=== PATIENT | male | born 1965 | race Caucasian/White ===

== ENCOUNTER 2017-03-31 02:23 | Inpatient (IN) | payer OTHER ==
[~2017-03-31] VITALS: Ht 177.8 cm; Wt 136.1 kg
[~2017-03-31 02:23] MED LIST: AMILORIDE HCL-1 EACH PO; ASPIRIN EC81 M1 PO; METOPROLOL TART25 M1 PO; PROTONIX40 M3 PO
[2017-03-31] MEDS ORDERED: COLACE100 M1 PO (09:36)
[2017-03-31] MEDS ORDERED: ASPIRIN EC325 M2 PO (09:36)
[2017-03-31] MEDS ORDERED: MIRALAX17 G1 PO (09:36)
[2017-03-31] MEDS ORDERED: MS CONTIN30 M1 PO (09:37)
[2017-03-31] MEDS ORDERED: DILAUDID2 M1 PO (09:37)
--- NOTE | 2017-03-31 09:45 | Patient Discharge Instructions ---
Discharge Instructions General Discharge Information You were seen/treated for: RIGHT KNEE PAIN RELATED TO OSTEOARTHRITIS You had these procedures: RIGHT TOTAL KNEE REPLACEMENT Watch for these problems: Increasing pain despite the use of pain medication. Increasing redness, warmth, swelling. Drainage of any type from incision. Inability to bear weight on right leg. Persistent nausea and vomitting. Fever greater than 101.5 degrees. Do not soak the wound: Yes No bath, but you may shower: Yes Other wound care: Keep wound clean and dry. No ointments of any type on or near incision at any time, no exceptions. Dressing will be changed on the second day after your surgery by nurses. Daily dry dressing changes recommended thereafter. Special Instructions: Aspirin: You will be taking 325 mg of aspirin twice a day as a way of protecting you from developing a blood clot. Please take as directed. Please take with food for stomach protection. Constipation: Pain medication can be very constipating. Please take colace and miralax as direct to ensure that you are able to move your bowels. These medications are available over the counter should you run out. You may stop taking these medications if you develop loose stool or diarrhea. If you haven't moved you bowels for several days, or if you are unable to pass gas, please contact your dr. Diet Continue normal diet: Yes Recommended Diet: Regular Additional DIET Information: Advance as tolerated Activity Full Activity/No Limits: No Activity Self Limited: Yes Pounds, do NOT lift more than: 10 Activity Limited to: Weight bear as tolerated Acute Coronary Syndrome Inclusion Criteria At DC or during hospital stay patient has or had the following: ACS DIAGNOSIS No Discharge Core Measures Meds if any: Prescribed or Continued at Discharge Meds if any: NOT Prescribed or Continued at Discharge Congestive Heart Failure Inclusion Criteria At DC or during hospital stay patient has or had the following: CHF DIAGNOSIS No Discharge Core Measures Meds if any: Prescribed or Continued at Discharge Meds if any: NOT Prescribed or Continued at Discharge Cerebrovascular accident Inclusion Criteria At DC or during hospital stay patient has or had the following: CVA/TIA Diagnosis No Discharge Core Measures Meds if any: Prescribed or Continued at Discharge Meds if any: NOT Prescribed or Continued at Discharge Venous thromboembolism Inclusion Criteria VTE Diagnosis No VTE Type NONE VTE Confirmed by (Test) NONE Discharge Core Measures - Per Current guidelines, there needs to be overlap - treatment for the first 5 days of Warfarin therapy. - If discharged on Warfarin prior to 5 days of - overlap therapy, the patient will need to be - assessed for post discharge needs including - *Post discharge parental anticoagulation - *Warfarin and/or parental anticoagulation education - *Follow up date to check INR post discharge At least 5 days overlap therapy as Inpatient No Meds if any: Prescribed or Continued at Discharge Note: Overlap Therapy is Warfarin and Anticoagulant Meds if any: NOT Prescribed or Continued at Discharge
--- NOTE | 2017-03-31 09:46 | Admission Core Measures ---
Admission Meds I reviewed the following Meds: Current Medications Sig/Mary Start time Last Medication Dose Stop Time Status Admin Acetaminophen 975 MG ONCE 03/31 0000 NR (Tylenol) 03/31 2359 Amiloride HCl 5 MG DAILY 03/31 1000 AC (Midamor) Cefazolin Sodium 3,000 MG ONCE 03/31 0000 NR (Kefzol-Ancef Inj) 03/31 235 Hydrochlorothiazide 50 MG DAILY 03/31 1000 AC (Hydrodiuril) Metoprolol Tartrate 25 MG BID 03/31 1000 UNVr (Lopressor) Non-Formulary 0 SEE ADMIN CRITERIA 03/31 0930 CAN Medication (NON FORMULARY) Oxycodone HCl 10 MG ONCE 03/31 0000 NR (Roxicodone) 03/31 2359 Pantoprazole Sodium 40 MG DAILY 03/31 1000 UNVr (Protonix) Ropivacaine 500 ML ONCE ONE 03/31 0845 AC (NAROPIN) 04/02 1044 ON-Q Ball 1 BAG Acute Coronary Syndrome Inclusion Criteria ACS Diagnosis No Inpatient Core Measures LDL Reminder: If No, please order W/I first 24hr of stay Congestive Heart Failure Inclusion Criteria CHF Diagnosis No Cerebrovascular accident Inclusion Criteria CVA/TIA Diagnosis No Inpatient Core Measures Bedside Swallow Eval Reminder: If BSE failed, place ST order Antithrombotic Reminder: Order Antithrombotic Medication by end of day 2 Antithrombotic Reminder: Document Reason Antithrombotic Not ordered by end of day 2 AFIB/Flutter Reminder: If Present, add to problem list AFIB/Flutter Reminder: Order Anticoag Medication for pts with AFIB/Flutter Atherosclerosis Reminder: If Present, add to problem list LDL Reminder: If No, please order W/I first 24hr of stay PT Order Reminder: If No, please order Venous thromboembolism Inpatient Core Measures VTE Risk Factors: Age > 40, Surgery No [facility] VTE prophylaxis d/t No contraindications No VTE Pharm Prophylaxis d/t No contraindications Inclusion Criteria - Per Current guidelines, there needs to be overlap - treatment for the first 5 days of Warfarin therapy. - Parenteral Anticoagulation (IV or SC) needs to be - given along with Warfarin therapy. VTE Diagnosis No VTE Type NONE VTE Confirmed by (Test) NONE Problem List As ranked by this Provider includes Assessment & Plan 1. Unilateral primary osteoarthritis, right knee HOME MEDS Home Med List Amiloride/Hydrochlorothiazide (Amiloride HCl-Hctz 5-50 MG Tab) 5 MG-50 MG TABLET 1 TAB PO DAILY HTN (Reported) Aspirin (Ecotrin*) 81 MG TABLET.DR 1 TAB PO DAILY CAD (Reported) Hydromorphone HCl (Dilaudid) 2 MG TABLET 1-2 TAB PO Q4-6 PRN PAIN Metoprolol Tartrate 25 MG TABLET 1 TAB PO BID CAD (Reported) Morphine Sulfate (Ms Contin) 30 MG TABLET.ER 1 TAB PO BID PAIN Pantoprazole Sodium (Protonix) 40 MG TABLET.DR 1 TAB PO DAILY GERD (Reported)
--- NOTE | 2017-03-31 09:50 | Surgical Discharge Summary ---
Visit Information Visit Dates Admission Date: 03/31/17 Discharge Date: 04/02/17 History of Present Illness Chief Complaint: Right knee pain related to unilateral primary osteoarthritis Surgical History Pertinent Surgical History: non-contributory Review of Systems: See H&P Hospital Course Course Attending Physician: REYNOLD LIANG MD Primary Care Physician: LENY POOL MD Hospital Course: D[place] was admitted to the hospital on 03/31/2017 for an elective right total knee replacement. He tolerated the procedure well and was transferred to a general surgical floor. There, his diet was advanced and tolerated and he was able to void spontaneously. He was evaluated and treated by physical therapy. At the time of hospital discharge, his pain was controlled with po pain medication, his vital signs were stable and within normal limits and his neurovascular status was intact. Allergies: Coded Allergies: codeine (TACCHYCARDIA 03/25/17) Disposition Summary Disposition Principal Diagnosis: Right knee unilateral primary osteoarthritis Additional Diagnosis: none Discharge Disposition: home health services Discharge Instructions General Discharge Information Code Status: Full Code Patient's Diet: Regular, advance as tolerated Patient's Activity: wbat Follow-Up Instructions/Appts: Follow up with Dr. Liang in 6 weeks from date of surgery Medications at Discharge Discharge Medications: Stop taking the following medications: Aspirin (Ecotrin*) 81 MG TABLET. ORAL DAILY Continue taking these medications: Metoprolol Tartrate (Metoprolol Tartrate) 25 MG TABLET 1 Tablet ORAL TWICE DAILY Comments: Last Taken:04/02/17 Time:9:20 AM Amiloride/Hydrochlorothiazide (Amiloride HCl-Hctz 5-50 MG Tab) 5 MG-50 MG TABLET 1 Tablet ORAL DAILY Comments: Last Taken:04/02/17 Time:9:21 AM Pantoprazole Sodium (Protonix) 40 MG TABLET.DR 1 Tablet ORAL DAILY Comments: Last Taken:04/02/17 Time:9:20 AM. GIVEN IV IN HOSPITAL Start taking the following new medications: Hydromorphone HCl (Dilaudid) 2 MG TABLET 1-2 Tablet ORAL EVERY 4-6 HOURS as needed for PAIN Qty = 36 No Refills Comments: Last Taken:04/02/17 Time:8:35 AM Morphine Sulfate (Ms Contin) 30 MG TABLET.ER 1 Tablet ORAL TWICE DAILY Qty = 6 No Refills Comments: Last Taken:04/02/17 Time:9:20 AM Docusate Sodium (Colace) 100 MG CAPSULE 1 Capsule ORAL TWICE DAILY Qty = 14 No Refills Instructions: DISCONTINUE USE IF YOU DEVELOP LOOSE STOOL OR DIARRHEA Comments: Last Taken:04/02/17 Time:9:20 AM Polyethylene Glycol 3350 (Miralax) 17 GRAM POWD.PACK 1 Packet ORAL DAILY Qty = 7 No Refills Instructions: dissolve in water, DISCONTINUE USE IF YOU DEVELOP LOOSE STOOL OR DIARRHEA Comments: Last Taken:04/02/17 Time:9:20 AM Aspirin (Ecotrin*) 325 MG TABLET.DR 1 Tablet ORAL TWICE DAILY Qty = 60 No Refills Comments: Last Taken:04/02/17 Time: 9:20 AM
--- NOTE | 2017-03-31 14:15 | NUR ---
ARRIVED TO FLOOR FROM PACU. A & O X 3. ON RA. VSS. C/O MILD PAIN BUT HAS +SENSATION TO RLE. ASSISTED TO EDGE OF BED. AMBULATED WITH PT USING ROLLING WALKER TO CHAIR. ON-Q PUMP IN PLACE TO RIGHT ADDUCTOR CANAL RUNNING AT 10ML/HR. SLIGHT TREMORS NOTED TO UPPER EXTREMITIES. PT STATES THAT THIS HAPPENED WHILE IN PACU AND THAT HE FEELS A LITTLE NERVOUS. DENIES ANY DIZZINESS OR LIGHTHEADEDNESS. ORIENTED TO CALL SYSTEM. WILL MONITOR.
[2017-03-31 14:37] VITALS: BP 140/90
--- NOTE | 2017-03-31 15:13 | PN- Orthopedic ---
Subjective Subjective: POST-OP NOTE: No complaints. Expected knee / thigh discomfort. Tolerating food. No nausea. Voided without difficulty. No dizziness. No shortness of breath. No chest pains. Anticipates discharge to home in a few days. Objective Vital Signs and I&Os Vital Signs Date Time Temp Pulse Resp B/P B/P Pulse O2 O2 Flow FiO2 Mean Ox Delivery Rate 03/31 1437 97.6 78 18 140/90 98 Room Air Physical Exam: General - alert & oriented x 3. comfortable. no acute distress. Lungs - clear bilaterally. no w/r/r. Cardiac - s1s2. reg. Abdomen - soft. nontender. Extremities - warm bilaterally. no c/c/e. calves soft and nontender b/l. ice pack in place over right knee. on q in place. nvi. Current Medications: Current Medications Sig/Mary Start time Last Medication Dose Route Stop Time Status Admin Acetaminophen 1,000 MG Q6P PRN 03/31 1445 AC IV 04/01 1433 Acetaminophen 0 .STK-MED ONE 03/31 0848 DC PO Acetaminophen 975 MG ONCE 03/31 0000 DC PO 03/31 2359 Amiloride HCl 5 MG DAILY 03/31 1000 AC PO Aspirin 325 MG BID 03/31 1000 AC PO Cefazolin Sodium 2 GM IQ8 03/31 1600 AC N/A 1 UNIT IV 04/01 0029 Cefazolin Sodium 3,000 MG ONCE 03/31 0000 DC IV 03/31 2359 Dextrose/Sodium 1,000 ML .[id number] 03/31 1445 AC 03/31 Chloride IV 1445 Docusate Sodium 100 MG BID 03/31 1000 AC PO Fentanyl Citrate 100 MCG .STK-MED ONE 03/31 0708 DC IM 03/31 0709 Hydrochlorothiazide 50 MG DAILY 03/31 1000 AC PO Hydromorphone HCl 2 MG Q4P PRN 03/31 1445 UNVr PO Hydromorphone HCl 4 MG Q4P PRN 03/31 1445 UNVr 03/31 PO 1445 Ketorolac 15 MG Q8P PRN 03/31 1445 AC Tromethamine IV 04/03 1433 Metoprolol Tartrate 25 MG BID 03/31 2200 AC PO Metoprolol Tartrate 25 MG BID 03/31 1000 DC PO Midazolam HCl 4 MG .STK-MED ONE 03/31 0709 DC IM 03/31 0710 Morphine Sulfate 2 MG Q2P PRN 03/31 1445 UNVr IV Non-Formulary 0 SEE ADMIN CRITERIA 03/31 0930 CAN Medication ANY Ondansetron HCl 4 MG Q6P PRN 03/31 1445 AC IV Oxycodone HCl 0 .STK-MED ONE 03/31 0849 DC PO Oxycodone HCl 10 MG ONCE 03/31 0000 DC PO 03/31 2359 Pantoprazole Sodium 40 MG DAILY 04/01 1000 AC IV Pantoprazole Sodium 40 MG DAILY 03/31 1000 DC IV Polyethylene Glycol 17 GM DAILY 03/31 1000 AC PO Promethazine HCl 12.5 MG Q6P PRN 03/31 1445 AC IV 04/07 0929 Ropivacaine 500 ML ONCE ONE 03/31 0845 AC ON-Q Ball 1 BAG INJ 04/02 1044 Tranexamic Acid 2,000 MG .STK-MED ONE 03/31 0708 DC IV 03/31 0709 Assessment/Plan Assessment/Plan This 51 year old male with hx htn is POD#0 s/p right total knee replacement for unilateral primary osteoarthritis pain control as ordered. on q in place for 1-2 more days. tolerating diet voided already asa bid - dvt ppx ancef x 2 darrell-operatively home meds, including beta brock, restarted bowel regime ordered PT eval f/u am labs his goal is to go home in a few days will d/w Core Measures/Miscellaneous Venous Thromboembolism VTE Risk Factors: Age > 40, Obesity, Surgery VTE Contraindications: No Contraindications VTE Diagnosis: No VTE Type: NONE VTE Confirmed by (Test): NONE Beta Brock Is Beta Brock a Home Med? Yes If Yes, Was This Ordered Today? Yes Antibiotics Is Patient on Antibiotics? Yes If Yes: prophylaxis
[2017-03-31 16:32] VITALS: BP 130/80
--- NOTE | 2017-03-31 16:44 | Operative Report ---
Operative/Inv Procedure Report Surgery Date: 03/31/17 Name of Procedure: Right total knee replacement Pre-Operative Diagnosis: Primary right knee DJD Post-Operative Diagnosis: Same Estimated Blood Loss: 50ml to 100ml Surgeon/Air Compressor Engineer: AZUL SUBRAMANIAN,REYNOLD Bauer Anesthesia: block Operative/Procedure Note Note: Description of Procedure: The patient was taken to the operating room and positively identified. After induction of spinal anesthesia and administration of appropriate pre-operative antibiotics, the patient was positioned supine on the operating room table and all bony prominences were well padded. A well-padded pneumatic tourniquet was placed on the right upper thigh. After performing a surgical timeout, the right lower extremity was prepped and draped in the usual sterile fashion. After exsanguination with Esmarch the tourniquet was inflated to 250mm of mercury. A standard medial parapatellar approach was made to the knee. This was carried down through skin and subcutaneous tissue to the level of the fascia. Meticulous hemostasis was maintained with Bovie electrocautery. The extensor mechanism and patellar retinaculum were opened sharply and the patella was everted. The infrapatellar fat was resected in order to improve exposure. Osteophytes were trimmed from the patella and femoral condyles and the patella was re-everted and tucked laterally. A medial release was performed and the cruciate ligaments were resected. The tibia was then subluxed anteriorly. Utilizing the appropriate extra-medullary guide, the proximal tibia was trimmed perpendicular to the long axis of the tibial shaft. Attention was then turned to the femur. After opening the medullary canal, the distal femoral cut was made in 6 degrees of valgus utilizing the appropriate intra-medullary guide. The extension gap was checked and found to be appropriate. The femur was then sized and the remainder of the femoral cuts were made with a size 7 4-in-1 femoral cutting guide. The flexion gap was checked and found to be symmetric and appropriate. The knee was then trialed with a size 7 femoral component, a size 7 tibial component and a size 16 mm TS polyethylene insert. The patella was not resurfaced due to its excellent preoperative condition. This yielded excellent range of motion, stability and patellar tracking. All trial components were removed and the knee was copiously irrigated with sterile saline. All components were cemented into place with Henrique Simplex cement. All the components were of the [employer] knee system of the above stated sizes. The knee was again irrigated after cementation. The extensor mechanism and patellar retinaculum were repaired using interrupted #1 vicryl suture. The skin was re-approximated with 2-0 vicryl and closed with jose. A sterile dressing was applied, the tourniquet was deflated, the patient was awakened and taken to the recovery room in satisfactory condition.
[2017-03-31 18:30] VITALS: BP 118/66
[2017-03-31 20:30] VITALS: BP 122/70
[2017-04-01 00:33] VITALS: BP 124/84
[2017-04-01 04:45] VITALS: BP 112/80
[2017-04-01 07:56] LABS: ABSOLUTE BASOPHIL COUNT 0 /CUMM (0.0-0.2); ABSOLUTE EOSINOPHIL COUNT 0.1 /CUMM (0.0-0.7); ABSOLUTE GRANULOCYTE CT 9.4 /CUMM (1.4-6.5); ABSOLUTE LYMPH COUNT 1.2 /CUMM (1.2-3.4); ABSOLUTE MONOCYTE COUNT 1.1 /CUMM (0.10-0.60); BASOPHIL % 0.2 % (0.0-2.0); EOSINOPHIL % 1.2 % (0-5); GRANULOCYTE % 79.2 % (42.2-75.2); HEMATOCRIT 37.8 % (42-52); MEAN CORPUSCULAR HGB 27.6 PG (27.0-31.0); MEAN CORPUSCULAR HGB CONC 33.5 G/DL (33.0-37.0); MEAN CORPUSCULAR VOLUME 82.4 FL (80.0-94.0); MEAN PLATELET VOLUME 9.1 FL (7.4-10.4); PLATELET COUNT 135 /CUMM (130-400); RBC DISTRIBUTION WIDTH 13.6 % (11.5-14.5); RED BLOOD CELL CT 4.59 /CUMM (4.70-6.10); WHITE BLOOD CELL COUNT 11.8 /CUMM (4.8-10.8)
--- NOTE | 2017-04-01 09:32 | PN- Orthopedic ---
Subjective Subjective: Patient reporting poor pain control overnight. States that posterior aspect of right knee is most uncomfortable. Denies chest pain, shortness of breath and difficulty breathing. Denies nausea and vomitting. Has been tolerating po. Has been voiding. Has been oob and ambulated with pt. Objective Vital Signs and I&Os Vital Signs Date Time Temp Pulse Resp B/P B/P Pulse O2 O2 Flow FiO2 Mean Ox Delivery Rate 04/01 0445 98.8 80 20 112/80 93 Room Air 04/01 0033 99.6 89 20 124/84 95 Room Air 03/31 2150 122/70 03/31 2030 98.9 93 20 122/70 95 Room Air 03/31 1830 98.7 92 20 118/66 96 Room Air 03/31 1632 98.0 80 20 130/80 98 Room Air 03/31 1437 97.6 78 18 140/90 98 Room Air Intake & Output 04/01 1600 04/01 0800 / 0000 03/31 1600 03/31 0800 03/31 0000 Intake Total 950 1050 Output Total 1150 325 300 Balance -200 725 -300 Intake, IV 700 600 Intake, Oral 250 450 Number 0 Bowel Movements Output, Urine 1150 325 300 Patient 300 lb Weight Weight Reported by Patient Measurement Method General: Alert and oriented x3, no acute distress Cardiac: RRR, s1s2 Pulm: CTA bilaterally Abdomen: Non-distended, obese Extremities: Moves all extremities, distal sensation intact. Skin warm and well perfused. DP pulses palpable bilaterally. Bilateral calves soft and non- tender. Surgical site: Right knee. Dressing dry and intact. ON Q in place, no leak. Assessment/Plan Assessment/Plan This is a 51 year male with a pmh significant for htn. He is pod 1 s/p right tkr. complaining of pain presently. -Add MS contin 30 mg bid now -D/C iv fluids -Continue asa 325 bid for dvt ppx -ALPS for dvt ppx, teds on discharge -Diet as tolerated -Activity: OOB with pt -Plan for dsg change tomorrow, dc on Q tomorrow -Dispo planning: Home with services in 1-2 days. Core Measures/Miscellaneous Venous Thromboembolism VTE Risk Factors: Age > 40, Obesity, Surgery VTE Contraindications: No Contraindications VTE Diagnosis: No VTE Type: NONE VTE Confirmed by (Test): NONE Beta Brock Is Beta Brock a Home Med? Yes If Yes, Was This Ordered Today? Yes Antibiotics Is Patient on Antibiotics? Yes If Yes: prophylaxis
[2017-04-01 14:06] VITALS: BP 116/68
[2017-04-02 06:58] VITALS: BP 122/74
--- NOTE | 2017-04-02 08:41 | PN- Orthopedic ---
Subjective Subjective: pod#2 s/p right tka siting up in chair pain abetter controlled with addition of long acting pain meds denies cp, sob, no n+v with diet tolerating diet doing well with pt Objective Vital Signs and I&Os Vital Signs Date Time Temp Pulse Resp B/P B/P Pulse O2 O2 Flow FiO2 Mean Ox Delivery Rate / 0658 99.0 89 18 122/74 94 Room Air / 2232 138/90 / 1406 99.1 84 18 116/68 93 06/ 1009 80 130/82 Intake & Output 06/ 1600 06/ 0800 / 0000 / 1600 / 0800 / 0000 Intake Total 7065 606 0326 Output Total 900 1350 1150 325 Balance -900 -275 -200 725 Intake, IV 125 700 600 Intake, Oral 950 250 450 Number 0 Bowel Movements Output, Urine 900 1350 1150 325 Physical Exam: cv: rrr lungs: clear abd: soft, +bs ext: drsmiguel west, wound c/d/i no calf tenderness bilat distal cms intact Assessment/Plan Assessment/Plan ortho stable plan continue oob with pt home d/c later today Core Measures/Miscellaneous Venous Thromboembolism VTE Risk Factors: Age > 40, Obesity, Surgery VTE Contraindications: No Contraindications VTE Diagnosis: No VTE Type: NONE VTE Confirmed by (Test): NONE Beta Brock Is Beta Brock a Home Med? Yes If Yes, Was This Ordered Today? Yes Antibiotics Is Patient on Antibiotics? Yes If Yes: prophylaxis
[2017-04-02 09:20] VITALS: BP 122/78
== END 2017-04-02 10:57 | disposition home health service (06) | DRG 470 ==
LOC: 2NA 02:23 → SDA 02:23 → ENRESERV 12:53 → 2NA 14:19 → ENPENDDIS 04-02 09:01 → 2NA 04-02 10:57
PROVIDERS: Nurse Practitioner; ADMIT Orthopaedic Surgery
PROC: 0SRC0J9 Replacement of Right Knee Joint with Synthetic Substitute, Cemented, Open Approach (ICD-10-PCS; principal; 2017-03-31)
PROC: 3E0T3CZ (ICD-10-PCS; 2017-03-31)
DX: M17.11 Unilateral primary osteoarthritis, right knee (principal); Z68.41 Body mass index [BMI] 40.0-44.9, adult; I10 Essential (primary) hypertension; E66.9 Obesity, unspecified; E78.2 Mixed hyperlipidemia; K21.9 Gastro-esophageal reflux disease without esophagitis; I25.10 Atherosclerotic heart disease of native coronary artery without angina pectoris; Z95.1 Presence of aortocoronary bypass graft
CPT/HCPCS: 2NAP; 36415; 82436; 88305; 97110-GO; 97116-GO; 97161-GP; 97530-GO; C1713; J0131; J0690; J2405; J2550; J2795; J7042